=== PATIENT | male | born 2000 | race Caucasian/White ===

== ENCOUNTER 2020-11-10 19:49 | Emergency (ER) | payer OTHER, MEDICAID, SELFPAY ==
--- NOTE | ~2020-11-10 | XR_ITS ---
EXAMINATION: XR TOES, LEFT CLINICAL INFORMATION: Left great toe injury. Pain and swelling. COMPARISON: None TECHNIQUE: 3 views of the left toes were obtained. FINDINGS: Mildly displaced, oblique fracture through the 1st proximal phalanx which extends from the dorsal aspect of the 1st metatarsophalangeal articular surface to the central aspect of the 1st interphalangeal articular surface. No dislocation. Circumferential soft tissue swelling. No joint space narrowing or marginal osteophytes. No osseous erosion. XR/XR toe LT min 2V IMPRESSION: Mildly displaced, oblique fracture of the 1st proximal phalanx contacting both the 1st metatarsophalangeal and 1st interphalangeal joint surfaces.
[2020-11-10 20:55] VITALS: BP 140/87; PULSE 91; RESP 14; TEMP 36.7; O2SAT 98; BMI 26.8
--- NOTE | 2020-11-10 21:50 | ED.LOWEXIN ---
HPI - Extremity Injury (Lower) General Chief Complaint: Extremity Injury, Lower Stated Complaint: toe inj Time Seen by Provider: 11/10/20 21:50 Source: patient Mode of arrival: ambulatory History of Present Illness HPI Narrative: This is a 20-year-old male who presents after jumping off of a loading dock onto his feet with pain and swelling ensuing in his left great toe. Related Data Allergies Allergy/AdvReac Type Severity Reaction Status Date / Time No Known Allergies Allergy Verified 11/10/20 21:01 [No Known Allergies*] Review of Systems Review of Systems: Pertinent positives and negatives as stated in HPI 10 point review of systems is otherwise negative. PMFSH Past Medical History Source: nursing notes reviewed Medical History Asthma Social History Social History Advance Directives: No Advance Directives Information Provided: Yes Physical Exam Vital Signs: Vital Signs: Last Vital Signs Temp 98.0 F 11/10/20 20:55 Pulse 91 11/10/20 20:55 Resp 14 11/10/20 20:55 BP 140/87 H 11/10/20 20:55 Pulse Ox 98 11/10/20 20:55 Body Mass Index 26.8 VITAL SIGNS: Reviewed. GENERAL: Well developed, well nourished, in no acute distress. HEAD: Normocephalic/atraumatic EYES: PERRLA, EOMI NOSE: Nares patent bilateral OROPHARYNX: no oral lesions noted, posterior pharynx clear LUNGS: Normal breath sounds. No adventitious sounds or accessory muscle use. SpO2<98> CARDIOVASCULAR: Regular rate and rhythm without noted murmurs ABDOMEN: Soft, non-tender, non-distended with bowel sounds. LEFT GREAT TOE: Ecchymosis, mild deformity, capillary refill less than 3 seconds NEUROLOGIC: Alert and oriented x 4. Course Course Course Narrative: This is a 20-year-old male with history and clinical presentation consistent with fracture versus dislocation of left great toe. On review of imaging there is a mildly displaced oblique fracture of the 1st proximal phalanx. This case was discussed briefly with orthopedic services who agrees with the plan to discharge and postop shoe with follow-up in the morning in the office. All results and findings cuts with the patient as mother at bedside. Discharge Plan Discharge Clinical Impression: Closed fracture of left great toe Patient Disposition: Home, Self-Care Instructions: Toe Fracture (ED), Post Surgical Shoe (ED) Additional Instructions: 1. Tylenol 1000 mg, orally, every 6 hours as needed for pain control. Do not exceed 4000 mg within 24 hours. 2. Ibuprofen 400 mg, orally with milk or food, every 6 hours as needed for pain control. 3. Follow-up with the orthopedic office in the morning, the referral was provided to you below. 4. You will need to keep your foot elevated when possible to remove some of the pressure for additional pain relief. In addition, apply ice to unexposed skin. Return to the ER for any acute worsening of your symptoms. Referrals: Kasey Dsouza NP [Primary Care Provider] - 2 days Vita Ray MD [Physician] - 2 days (Evaluate and treat as indicated for mildly displaced, oblique fracture of the 1st proximal phalanx)
== END 2020-11-10 22:31 | disposition home or self-care (01) ==
PROVIDERS: Emergency Provider Student in an Organized Health Care Education/Training Program; PCP Nurse Practitioner Primary Care
DX: S92.412A Displaced fracture of proximal phalanx of left great toe, initial encounter for closed fracture (principal); W17.89XA Other fall from one level to another, initial encounter; Y93.89 Activity, other specified; Y92.219 Unspecified school as the place of occurrence of the external cause; Y99.0 Civilian activity done for income or pay
CPT/HCPCS: 73660; 99284

== ENCOUNTER → 2020-11-17 08:47 | Outpatient (BNVA) | payer OTHER, MEDICAID, SELFPAY | PROVIDERS: PCP Nurse Practitioner Primary Care; Visit Provider Physician Assistant | DX: S92.402A Displaced unspecified fracture of left great toe, initial encounter for closed fracture (principal) | CPT/HCPCS: 99202 ==

== ENCOUNTER 2021-01-31 07:11 | Emergency (ER) | payer OTHER, MEDICAID, SELFPAY ==
[2021-01-31 07:12] VITALS: BP 135/91; PULSE 76; RESP 18; TEMP 36.6; O2SAT 100; BMI 26.4
--- NOTE | 2021-01-31 07:58 | ED_ITS ---
HPI - General Adult General Chief complaint: General Medical Stated complaint: anxiety and Panic attack Time Seen by Provider: 01/31/21 07:58 Source: patient and family (Mother) Mode of arrival: ambulatory Limitations: no limitations History of Present Illness HPI narrative: 20-year-old male history of anxiety usually controlled with Effexor, is in his medication about 2 months now, patient seen last night in very anxious with severe insomnia. Patient declined any SI or HI or auditory hallucination. Related Data Home Medications Medication Instructions Recorded Confirmed albuterol sulfate 90 mcg/actuation 0 mcg INHALATION 11/17/20 aerosol inhaler atomoxetine 10 mg capsule 10 mg PO DAILY 11/17/20 atomoxetine 25 mg capsule 25 mg PO QAM 11/17/20 cholecalciferol (vitamin D3) 50 50 mcg PO DAILY 11/17/20 mcg (2,000 unit) capsule fluticasone propionate 110 1 puff INHALATION BID 11/17/20 mcg/actuation HFA aerosol inhaler hydroxyzine HCl 10 mg tablet 10 mg PO TID 11/17/20 naloxone 4 mg/actuation nasal spray 1 spray INTRANASAL ONCE PRN 11/17/20 sertraline 50 mg tablet 50 mg PO DAILY 11/17/20 venlafaxine 37.5 mg 37.5 mg PO DAILY 11/17/20 capsule,extended release 24 hr venlafaxine 75 mg capsule,extended 75 mg PO DAILY 11/17/20 release 24 hr Previous Rx's Medication Instructions Recorded venlafaxine 37.5 mg 37.5 mg PO DAILY #7 cap 01/31/21 capsule,extended release 24 hr (Effexor XR) Allergies Allergy/AdvReac Type Severity Reaction Status Date / Time No Known Allergies Allergy Verified 11/17/20 09:10 [No Known Allergies*] Review of Systems Review of Systems: All other systems are reviewed and are negative Constitutional: Reports as per HPI and Reports no additional constitutional complaints Eyes: Reports as per HPI and Reports no additional eye complaints Reports system reviewed and no additional complaints, except as documented Cardiovascular: Reports as per HPI and Reports no additional cardiovascular complaints Respiratory: Reports as per HPI and Reports no additional respiratory complaints Gastrointestinal: Reports as per HPI and Reports no additional gastrointestinal complaints Genitourinary: Reports no additional female genitourinary complaints Musculoskeletal: Reports no additional musculoskeletal complaints Skin/Breast: Reports system reviewed and no additional complaints, except as docu Psychiatric: Reports no additional psychiatric complaints Endocrine: Reports no additional endocrine complaints Hematologic/Lymphatic: Reports no additional hematologic/lymphatic complaints Allergic/Immunologic: Reports no additional allergic/immunologic complaints Reports system reviewed and no additional complaints, except as documented and Reports Abnormal speech present [facility] Past Medical History Medical History (Updated 01/31/21 @ 08:05 by Lucio Salvador MD) Anxiety Asthma Depression Social History Social History Advance Directives: No Advance Directives Information Provided: Yes Current occupational status: employed Physical Exam Vital Signs: Vital Signs: Last Vital Signs Temp 98 F 01/31/21 07:12 Pulse 76 01/31/21 07:12 Resp 18 01/31/21 07:12 BP 135/91 H 01/31/21 07:12 Pulse Ox 100 01/31/21 07:12 Body Mass Index 26.4 Vital signs have been reviewed as appeared to be correct. Blood pressure normal. Heart rate normal. Respiration rate normal. Temperature normal. Oxygen saturation normal. Appearance: Alert. Oriented X3. No acute distress. Head: Normal external exam. Normocephalic. Atraumatic. No Pretty signs noted. No raccoon eyes noted Eyes: PERRLA. EOMI. Conjunctiva and sclera normal. Eyelids normal. ENT: TM's Normal. Pharynx normal. Uvula midline. Moist mucous membranes. No trismus noted. No drooling noted. No muffled voice noted. Neck: Normal inspection. Neck supple. FROM. No adenopathy. Thyroid Normal. No meningeal signs. No neck mass noted. CVS: Normal heart rate and rhythm. Heart sound normal. No murmurs noted. Pulses normal throughout. Respiratory: No respiratory distress. Painless inspiration. Breath sounds normal. No wheezes/rales/rhonchi noted. Chest nontender. No accessory muscle usage noted or decreased air movement noted. Abdomen: Soft and nontender. Bowel sounds normal in all 4 quadrants. No distention noted. No organomegaly noted. No visible injury noted. Back: No CVA tenderness. Full range of motion noted. Skin: Skin warm and dry. Normal skin color. Normal skin turgor. No rashes/lesions/lacerations noted. Extremities: No lower extremity edema. Extremities exhibit normal range of motion. Extremities nontender. Neuro: Oriented X 3. Cranial nerve exam: II-XII are grossly intact No motor deficit. No sensory deficit. Reflexes normal. Course Course Course Narrative: 20-year-old male with history of anxiety and insomnia patient was taking Effexor to control his symptoms has not been using medication for 2 months, because of the acute flare of his symptoms patient presented today asking to send the medicine to [facility] pharmacy Discharge Plan Discharge Clinical Impression: Anxiety Insomnia Qualifiers: Insomnia type: unspecified Qualified Code(s): G47.00 - Insomnia, unspecified Patient Disposition: Home, Self-Care Instructions: Insomnia (ED) Additional Instructions: Follow-up with your primary doctor in 2-3 days. Prescriptions: New venlafaxine [Effexor XR] 37.5 mg capsule,extended release 24hr 37.5 mg PO DAILY Qty: 7 RF: 0 No Action venlafaxine 75 mg capsule,extended release 24hr 75 mg PO DAILY RF: 0 atomoxetine 25 mg capsule 25 mg PO QAM RF: 0 hydroxyzine HCl 10 mg tablet 10 mg PO TID RF: 0 cholecalciferol (vitamin D3) 50 mcg (2,000 unit) capsule 50 mcg PO DAILY RF: 0 atomoxetine 10 mg capsule 10 mg PO DAILY RF: 0 venlafaxine 37.5 mg capsule,extended release 24hr 37.5 mg PO DAILY RF: 0 Narcan 4 mg/actuation spray,non-aerosol 1 spray intranasal ONCE PRNRF: 0 Flovent HFA 110 mcg/actuation HFA aerosol inhaler 1 puff inhalation BID RF: 0 albuterol sulfate 90 mcg/actuation HFA aerosol inhaler 0 mcg inhalation RF: 0 sertraline 50 mg tablet 50 mg PO DAILY RF: 0
== END 2021-01-31 08:34 | disposition home or self-care (01) ==
PROVIDERS: Emergency Provider Emergency Medicine; PCP Nurse Practitioner Primary Care
DX: F41.0 Panic disorder [episodic paroxysmal anxiety] (principal); G47.00 Insomnia, unspecified; F41.1 Generalized anxiety disorder; F43.0 Acute stress reaction; Z79.899 Other long term (current) drug therapy
CPT/HCPCS: 99283; 99284

== ENCOUNTER 2023-05-06 14:40 | Emergency (ER) | payer OTHER, MEDICAID, SELFPAY ==
--- NOTE | ~2023-05-06 | CT_ITS ---
EXAMINATION: CT CERVICAL SPINE WITHOUT CONTRAST; UNENHANCED CT OF THE HEAD. CLINICAL INFORMATION: Fall. Neck trauma. COMPARISON: None TECHNIQUE: Routine unenhanced CT of the head with multiple coronal and sagittal reformatted images; routine unenhanced CT of the cervical spine with multiple coronal and sagittal reformatted images. This CT examination was performed using dose optimization techniques as appropriate, variously including the following: *Automated exposure control *Adjustment of mA and/or kV according to patient size (this includes techniques or standardized protocols for targeted exams where dose is matched to indication/reason for exam; i.e. extremities or head) *Use of iterative reconstruction technique DLP: 1314 mGy-cm FINDINGS: No intracranial hemorrhage, tumors or acute infarcts noted. The orbits and globes are normal in appearance. Mild right periorbital soft tissue inflammatory changes are noted. The right globe and orbit are normal in appearance. Mild lobulated mucosal thickening is noted within the frontal sinuses and right maxillary sinus. No paranasal sinus gas-fluid levels noted. No mastoid or middle ear cavity effusions visualized. CT cervical spine: No fractures or acute appearing subluxations identified. The visualized lung apices are clear. No prevertebral fluid collections or soft tissue inflammatory changes identified. Grossly normal appearance of the thyroid. CT/CT head/brain wo IV con IMPRESSION: CT head: 1. No acute intracranial abnormalities. 2. Right periorbital soft tissue inflammatory changes. No maxillofacial fractures identified. The cervical spine: 1. No acute abnormalities. No fractures or acute subluxations identified.
--- NOTE | ~2023-05-06 | CT_ITS ---
EXAMINATION: CT CERVICAL SPINE WITHOUT CONTRAST; UNENHANCED CT OF THE HEAD. CLINICAL INFORMATION: Fall. Neck trauma. COMPARISON: None TECHNIQUE: Routine unenhanced CT of the head with multiple coronal and sagittal reformatted images; routine unenhanced CT of the cervical spine with multiple coronal and sagittal reformatted images. This CT examination was performed using dose optimization techniques as appropriate, variously including the following: *Automated exposure control *Adjustment of mA and/or kV according to patient size (this includes techniques or standardized protocols for targeted exams where dose is matched to indication/reason for exam; i.e. extremities or head) *Use of iterative reconstruction technique DLP: 1314 mGy-cm FINDINGS: No intracranial hemorrhage, tumors or acute infarcts noted. The orbits and globes are normal in appearance. Mild right periorbital soft tissue inflammatory changes are noted. The right globe and orbit are normal in appearance. Mild lobulated mucosal thickening is noted within the frontal sinuses and right maxillary sinus. No paranasal sinus gas-fluid levels noted. No mastoid or middle ear cavity effusions visualized. CT cervical spine: No fractures or acute appearing subluxations identified. The visualized lung apices are clear. No prevertebral fluid collections or soft tissue inflammatory changes identified. Grossly normal appearance of the thyroid. CT/CT cervical spine wo IV con IMPRESSION: CT head: 1. No acute intracranial abnormalities. 2. Right periorbital soft tissue inflammatory changes. No maxillofacial fractures identified. The cervical spine: 1. No acute abnormalities. No fractures or acute subluxations identified.
[2023-05-06 14:50] VITALS: BP 102/69; BP 144/82; PULSE 100; PULSE 102; RESP 22; O2SAT 98; BMI 25.7
--- NOTE | 2023-05-06 14:50 | ECG_ITS ---
Test Reason : SEIZURES Blood Pressure : / mmHG Vent. Rate : 100 BPM Atrial Rate : 100 BPM P-R Int : 162 ms QRS Dur : 088 ms QT Int : 352 ms P-R-T Axes : 055 056 060 degrees QTc Int : 454 ms Normal sinus rhythm Normal ECG No previous ECGs available Referred By: Zohreh Kay Electronically Signed By:LEON MOCTEZUMA MD
--- NOTE | 2023-05-06 14:58 | PC.NURSE ---
Patient arrived from residential after having a 3 minute tonic clonic seizure that per staff last 3 minutes. During seizure patient fell hitting right side of head and sustaining a laceration. Patient denies pain states was feeling anxious and that was the last thing he remembers. Calm and cooperative, vss
[2023-05-06] MEDS: LORazepam 1 MG TABLET 2 MG PO (15:02)
--- NOTE | 2023-05-06 15:06 | PC.NURSE ---
Mom updated on current condition
--- NOTE | 2023-05-06 15:11 | ED.SEIZURE ---
HPI - Seizure General Chief Complaint: Seizure Stated Complaint: SZ,POST ICTAL PER EMS Time Seen by Provider: 05/06/23 14:41 Source: patient and EMS Mode of arrival: EMS Limitations: no limitations History of Present Illness HPI Narrative: witnessed by roommate anxious then fell to ground hit head 3 min GTC with postictal state he is anxious here agrees to EKG and CT head but refuses labs, his parents on on the phone and aware. MD complaint: seizure and possible seizure Onset (ago): minute(s) (just prior to arrival ) Description of Episode: loss of consciousness and tonic-clonic movement Duration of episode: 3 -: minutes(s) Witnessed: Yes - by Bystander Trauma: Yes Seizure History: No Place: Home Possible Precipitating Event: none Associated symptoms: denies other symptoms Treatments prior to arrival: none Related Data Home Medications Medication Instructions Recorded Confirmed albuterol sulfate 90 mcg/actuation 0 mcg inhalation 11/17/20 aerosol inhaler atomoxetine 10 mg capsule 10 mg PO DAILY 11/17/20 atomoxetine 25 mg capsule 25 mg PO QAM 11/17/20 cholecalciferol (vitamin D3) 50 50 mcg PO DAILY 11/17/20 mcg (2,000 unit) capsule fluticasone propionate 110 1 puff inhalation BID 11/17/20 mcg/actuation HFA aerosol inhaler hydroxyzine HCl 10 mg tablet 10 mg PO TID 11/17/20 naloxone 4 mg/actuation nasal spray 1 spray intranasal ONCE PRN 11/17/20 sertraline 50 mg tablet 50 mg PO DAILY 11/17/20 venlafaxine 37.5 mg 37.5 mg PO DAILY 11/17/20 capsule,extended release 24 hr venlafaxine 75 mg capsule,extended 75 mg PO DAILY 11/17/20 release 24 hr Previous Rx's Medication Instructions Recorded venlafaxine 37.5 mg 37.5 mg PO DAILY #7 caps 01/31/21 capsule,extended release 24 hr (Effexor XR) Allergies Allergy/AdvReac Type Severity Reaction Status Date / Time No Known Allergies Allergy Verified 11/17/20 09:10 [No Known Allergies*] Review of Systems Review of Systems: Constitutional : No Fever, No Chills, No Fatigue ENT/Mouth : No sore throat, No Rhinorrhea Eyes: No Eye Pain, No Swelling, No Redness Cardiovascular : No Chest Pain, No SOB, No Dyspnea on Exertion Respiratory : No Cough, No Sputum Gastrointestinal : No Nausea, No Vomiting, No Diarrhea, No abdominal Pain Genitourinary : No Dysuria, No Urinary Frequency, No Hematuria, Musculoskeletal : No joint pain, No Myalgias, No Joint Swelling Skin : No Skin Lesions, No rash Neuro : No Weakness, No Numbness, No Dizziness, no Headache Psych : No Anxiety/Panic, No Depression Heme/Lymph: No Bruising, No Bleeding,No Lymphadenopathy Endocrine : No Polyuria, No Polydipsia All other systems reviewed and are negative [facility] Past Medical History Medical History (Updated 05/06/23 @ 16:41 by Zohreh Kay DO) Depression Anxiety Asthma Social History Social History Alcohol intake: current Alcohol intake frequency: holidays/special occasions only Patient Tobacco Use Status: Never used Tobacco Substance Use Type: Marijuana Advance Directives: No Advance Directives Information Provided: No Current occupational status: employed Physical Exam Vital Signs: Vital Signs: Last Vital Signs Pulse 102 H 05/06/23 14:50 Resp 22 H 05/06/23 14:50 BP 102/69 05/06/23 14:50 Pulse Ox 98 05/06/23 14:50 O2 Del Method Room Air 05/06/23 14:50 BMI result Body Mass Index 25.7 Appearance: Alert. Oriented X3. No acute distress. Eyes: Pupils equal, round and reactive to light. ENT: Pharynx normal. contusion and 1cm laceration R eyebrow, abrasion R cheek Neck: Normal inspection. Neck supple. CVS: Normal heart rate and rhythm. Pulses normal. Respiratory: No respiratory distress. Breath sounds normal. Abdomen: Soft and nontender. Skin: Skin warm and dry. Normal skin color. Normal skin turgor. Extremities: No lower extremity edema. No calf ttp Neuro: Oriented X 3. No motor deficit. No sensory deficit. Course Course Course Narrative: back to baseline POC > 90, did just start lamotrigine GCS 15 refusing all other workup - at baseline GCS 15 no longer postictal states he wants to leave I cannot keep him here against his will he is on the phone with parents in [facility] who state they cannot come either Medications Administered Discontinued Medications Generic Name Dose Route Start Last Admin Trade Name Freq PRN Reason Stop Dose Admin Lorazepam 2 mg 05/06/23 14:50 05/06/23 15:02 Lorazepam 1 Mg Tablet PO 05/06/23 14:51 2 mg ONCE ONE Administration Medical Decision Making Medical Decision Making [facility] Narrative: 23 yo male with hx of mental health issues, anxiety with syncope currently in [facility] on suboxone, no prior seizures who was with a roommate who saw him anxious and then passed out - staff report GTC seizure x 3 minutes with head strike. He is refusing all labs but will allow EKG, CT head and I am going to give PO ativan for anxiety. Differential Diagnosis Differential Diagnoses: The differential diagnosis associated with the presentation includes seizure, head injury, laceration Admission/Observation Consideration of admission/observation: Escalation of care including admission/observation considered refusing further care and wants to leave GCS 15 Lab Data [facility] Lab Attestation statement: I reviewed the patient's lab results. Labs: Lab Results 05/06/23 Range/Units 16:50 POC Glucose 96 (60-115) mg/dL Independent Interpretation I performed an independent interpretation of an: EKG and CT Scan (no ICH) Interpretation: Rate: 100 Rhythm: NSR [place]: normal Normal P waves. Normal NAYE. Normal QRS complex. ST T wave : no FAIZAN, no acute ischemia qTC: normal prior studies: no acute ischemia The study has been interpreted contemporaneously by me. . Independent Historian Clinical information obtained from an independent historian. History obtained from or confirmed by: Parent and EMS External Record Review External record reviewed: Outpatient record Procedures Laceration Laceration 1: Site: face Side (If applicable): right Size (cm): 1 Description: linear Depth: simple, single layer Pre-repair: wound explored and irrigated extensively Skin layer closed with: other (dermabond) Discharge Plan Discharge Clinical Impression: Generalized seizure Face lacerations Qualifiers: Encounter type: initial encounter Qualified Code(s): S01.81XA - Laceration without foreign body of other part of head, initial encounter Head injury Qualifiers: Encounter type: initial encounter Qualified Code(s): S09.90XA - Unspecified injury of head, initial encounter Patient Disposition: Home, Self-Care Instructions: Laceration (ED), Head Injury (ED), New-Onset Seizure in Adults (ED) Additional Instructions: you refused all labs in the ED. your CT head and EKG were normal. please stay with responsible adult. avoid swimming alone, cooking over open flame, operating a car or machinery for 6 months or until cleared by your doctor. please follow up with your primary care doctor. we do not start seizure medications for 1st time seizure generally. surgical glue will fall off in 5 to 7 days. continue lamotrigine please follow up with a neurologist, if this occurs again would start a seizure medication though you did just start lamictal every 30 min safety checks tonight Prescriptions: No Action venlafaxine [Effexor XR] 37.5 mg capsule,extended release 24hr 37.5 mg PO DAILY Qty: 7 0RF venlafaxine 75 mg capsule,extended release 24hr 75 mg PO DAILY atomoxetine 25 mg capsule 25 mg PO QAM hydroxyzine HCl 10 mg tablet 10 mg PO TID cholecalciferol (vitamin D3) 50 mcg (2,000 unit) capsule 50 mcg PO DAILY atomoxetine 10 mg capsule 10 mg PO DAILY venlafaxine 37.5 mg capsule,extended release 24hr 37.5 mg PO DAILY Narcan 4 mg/actuation spray,non-aerosol 1 spray intranasal ONCE PRN Flovent HFA 110 mcg/actuation HFA aerosol inhaler 1 puff inhalation BID albuterol sulfate 90 mcg/actuation HFA aerosol inhaler 0 mcg inhalation sertraline 50 mg tablet 50 mg PO DAILY Referrals: Chas Calle MD [Physician] - (call to schedule appointment)
--- NOTE | 2023-05-06 15:16 | PC.NURSE ---
[facility] staff called and updated on patients condition. Renata can be called with questions at [phone]. hr director must be called prior to discharge back to long-term at [phone] (Dimple)
--- NOTE | 2023-05-06 16:51 | PC.NURSE ---
BS 96
[2023-05-06 16:58] LABS: Glucose, Whole Blood 96 mg/dL (60-115)
--- NOTE | 2023-05-06 17:11 | PC.NURSE ---
Discharge plan reviewed with patient and [facility] who verbalized understanding. [facility] to book uber to pick patient up
--- NOTE | 2023-05-06 17:21 | PC.NURSE ---
Patient provided with [facility] from [facility] number to call for uber vehicle information. Patient brought to waiting room to wait for uber
== END 2023-05-06 17:22 | disposition home or self-care (01) ==
PROVIDERS: Emergency Provider Student in an Organized Health Care Education/Training Program; PCP Nurse Practitioner Primary Care
DX: G40.409 Other generalized epilepsy and epileptic syndromes, not intractable, without status epilepticus (principal); S01.81XA Laceration without foreign body of other part of head, initial encounter; S09.90XA Unspecified injury of head, initial encounter; W19.XXXA Unspecified fall, initial encounter; F41.9 Anxiety disorder, unspecified; Y93.89 Activity, other specified; Y92.9 Unspecified place or not applicable; Y99.9 Unspecified external cause status
CPT/HCPCS: 12011; 70450; 72125; 82947; 93005; 99284

== ENCOUNTER 2025-05-02 15:21 | Outpatient (AMB) | payer OTHER, MEDICAID, SELFPAY ==
--- NOTE | 2025-05-02 15:23 | A.OFFVIS_ITS ---
Vital Signs 05/02/25 15:31 Height 6 ft Weight 215 lb BMI 29.2 BP 138/74 Blood Pressure Location Rt brachial Position Sitting Respiration 16 Pulse 85 Pulse Source Pulse Oximeter Pulse Oximetry (%) 98 Oxygen Delivery Method Room Air Intake Visit Reasons: follow up after [facility] Coordinator Required: No Allergies No Known Allergies (No Known Allergies*) Allergy (Verified 05/02/25 15:31) HPI Comments Details: Carmine is a 25-year-old male patient here today for a post emergency room visit at which time he experienced a tonic-clonic event. He was followed here in the past by Dr. Brooks most recently seen in March of 2023 at which time he was doing well on lamotrigine. Carmine tells me today that after seeing Dr. Brooks he did taper off of the lamotrigine for unclear reasons and perhaps due to some poor lifestyle choices such as substance use and other social factors. He has been seeing someone for his mental health who ended up putting him on a medication that was thought to be supportive of both his moods and seizure. For some time he was doing okay on this but then stopped these medications as well. He has been off medication for at least several months and was in a. If life where he was feeling extremely stressed. It was this February he had another tonic-clonic event while at work. He was off of antiepileptics at that time. After his tonic-clonic event in February he went back on lamotrigine 200 mg twice daily. Since being back on lamotrigine, he has not had any further tonic-clonic events but has continued to have some minor myoclonic jerks similar to his previous. He has these most often in the morning upon wakening and he experiences on average 1 or 2 myoclonic jerks per week. He does admit to higher amount of missed doses of medication most typically his nighttime dose of lamotrigine. He is still drinking alcohol regularly (estimates 3-4 beers per night) and notes that this has impacted his sleep negatively though is still working on trying to stop his regular alcohol use. He has not never drink heavier and this on a regular basis. 06/01/23 EEG- Abnormal with several generalized polyspike and spike wave discharges during the record without clinical Sx. consistent with a generalized seizure disorder. ON LICENSE OF [facility] Medical History (Updated 05/02/25 @ 16:09 by Regla Clifford CNP) Depression Anxiety Asthma Social History Alcohol intake: current Alcohol intake frequency: holidays/special occasions only Patient Tobacco Use Status: Never used Tobacco Substance Use Type: Marijuana Current occupational status: employed Review of Systems Const All systems reviewed & are unremarkable except as noted in HPI and below Physical Exam Const General: cooperative, healthy appearing, comfortable and no acute distress Nutritional Appearance: well nourished Orientation/consciousness: patient oriented x3 Limitations: no limitations HEENT Head: Yes normal to inspection and Yes normocephalic Eyes General: appearance normal, both eyes and all related structures Visual Lange: normal visual lange by confrontation Alignment and Position: alignment normal Periorbital: periorbital findings normal Eyelids: Yes eyelids normal Conjunctivae: conjunctivae normal Sclerae: sclerae normal Neuro General: patient oriented x3 Cranial nerves: Yes CN's II-XII intact bilaterally Cognition (Neuro): normal cognition Gait exam (Neuro): Normal gait present Motor exam (neuro): no tremor noted Sensory Exam: double simultaneous stimulation for sensation normal Romberg Test: Negative Pupils: Normal pupillary reactivity/response: bilateral Psych Appearance: grossly normal Mental Status: mental status grossly normal Speech and movement: Normal speech and movement present and Clear speech present Affect: normal affect Attitude: cooperative Thought process: Normal thought process present Thought content: Normal thought content present Insight: Good insight present (Psych) Judgement: Good judgement present (Psych) Assessment & Plan Assessment & Plan (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 He is currently struggling with some social and environmental issues that have complicated his seizure disorder. He has been doing well on lamotrigine in the past though had come off of it for unclear reasons. He had went back on another agent that he can not recall that he feels was prescribed both for his seizures and mood stabilization. He came off of those medications as well and back in February while off of any antiepileptic medication was under a significant amount of stress and had a tonic-clonic event while at work. Since this time he is back on lamotrigine 200 mg twice daily and has had improvement in his symptoms though still has 1 or 2 myoclonic jerks in the morning per week. This may be related to some missed doses of medication though it is not clear. I would 1st like to help improve his compliance and therefore we will switch his lamotrigine to extended release. He in the meantime would like to work on his alcohol intake and in the future, if his sleep does not improve after discontinuation of alcohol we can consider a sleep study. -change lamotrigine 200 mg twice daily to lamotrigine 400 mg extended release daily in efforts to improve his compliance/coverage -patient agrees to work on slow tapering of alcohol with collaboration by his primary care provider -could consider sleep study in the future if sleep continues to be poor even after discontinuation of alcohol -follow-up in 6 weeks or sooner if needed -he is currently aware that he cannot drive 6 months after most recent seizure event Medications: New lamotrigine ER 400 mg (2 x 200 mg) PO DAILY 60 tabs 5RF 30 days Discontinued lamotrigine Discontinued Reason: Doctor's Order 200 mg PO BID 30 days 60 tabs 5RF Coding Level of Care Code Est Pt Level 4 (16895) Diagnoses Juvenile myoclonic epilepsy G40.B09
[2025-05-02 15:31] VITALS: BP 138/74; PULSE 85; RESP 16; O2SAT 98; BMI 29.2
--- OUTSIDE RECORDS SUMMARY | 2025-05-03 00:10 | XMS_ITS | Clinical Summary ---
Author Organization [employer] Address [address] [place] [address] Care Team Providers Care Card Lacer Name Role Phone Kasey Dsouza MAAME Primary Care Provider [phone] Allergies Active Allergy Reactions Criticality Noted Date Comments Valproic Acid 09/16/2022 Other reaction(s): Feeling suicidal Medications * This document contains information received from the source organization and may not represent a complete record from that organization. ibuprofen 400 MG tabletIndications :Acute back pain, unspecified back location, unspecified back pain laterality Take 1 tablet (400 mg) by mouth every 6 (six) hours if needed for moderate pain or fever for up to 30 doses. 30 tablet 2 Active albuterol 108 (90 Base) MCG/ACT inhaler Inhale 2 puffs every 4 (four) hours if needed for wheezing or shortness of breath. 18 g 1 3 Active hydrOXYzine HCl (Atarax) 50 MG tablet 3 Active lamoTRIgine (LaMICtal) 200 MG tablet Take 1 tablet by mouth 2 times daily. 4 Active Blood Pressure kitIndications:El evated blood pressure reading without diagnosis of hypertension 1 each 2 times daily. 1 kit 5 03/26/20 26 Active thiamine (Vitamin B-1) 100 MG tabletIndications :Alcohol use disorder, moderate, dependence (CMS/HCC) (HCC) Take 1 tablet (100 mg) by mouth Once per day. 90 tablet 3 03/26/2025 7:21 PM EDT 5 03/26/20 26 Active Folic Acid-Vit B6-Vit B12 0.5-5-0.2 MG tabletIndications :Alcohol use disorder, moderate, dependence (CMS/HCC) (HCC) Take 1 tablet by mouth Once per day. 90 tablet 3 5 Active Active Problems Problem Noted Date Diagnosed Date Alcohol use disorder, moderate, dependence (CMS/ HCC) 03/26/2025 Seizure (CMS/HCC) 05/10/2023 Assessment & Plan (05/10/2023 8:28 PM EST): Episode of seizure -first event on 05/06/2023 . Denies infectious nor drug use,denies head trauma prior event. Did hit his head after episode causing right eye trauma w bruise and eye hemorrhage reported as improving ,denies alarming neuro symptoms. -CT cervical spine and head w/o contrast 05/06/2023 mild right perioorbital soft tissue inflammatory changes are noted otherwise no acute brain or neck findings -brain MRI w/o contrast referred today -referred to neurologist will need EEG -blood labs including utox-pt agreed for testing -advised for to use ice in his eye to help w swelling -alarm signs and symptoms discussed w pt -f w PCP in 4 weeks to monitor image,labs ,consult Right shoulder pain 05/10/2023 Assessment & Plan (05/10/2023 8:30 PM EST): Acute on chronic right shoudler pain worsen after fall Exam not concerning for fx nor dislocation -PT referral for shoulder today ,if no improvement would need image of shoulder -tylenol prn -f w PCP in 4 weeks Health care maintenance 05/10/2023 Assessment & Plan (05/10/2023 8:30 PM EST): -refuse flu vaccine offered today Generalized anxiety disorder 09/16/2022 Severe episode of recurrent major depressive disorder, without psychotic features (CMS/HCC) 09/16/2022 Assessment & Plan (07/19/2024 9:30 AM EST): During [facility] Consult Carmine presenting with depressed mood, Tearful, crying spells , hopelessness, irritable mood, loss of interests/pleasure , sense of isolation/loneliness , isolating, change in appetite or weight reduce appetite, changes in sleep difficulty falling asleep, fatigue/loss of energy, worthlessness, inappropriate/excessive guilt , difficulty concentrating, indecisiveness and Difficulty with attention, Difficulty completing tasks/jumping between tasks or activities, Difficulty with focus, Avoidance of tasks, Easily distracted, Forgetful, Difficulty being still, Restlessness/fidgeting, Talkative, Interrupts others, Executive functioning difficulty, and Difficulty with relationships; for a period of 18+ mo, for most or all symptoms in the context of family issues, housing, and long history of mental health conditions untreated for most part. Carmine carries a diagnosis for ADHD per his medical chart. He is currently connected with a psychiatrist at [facility]. Used to see a therapist at [facility] but agency recently closed. Carmine reported long history of mental health. He has been on medication since his early teens. Current stressors are identified as housing and family issues (complicated dynamics with his mother). clinician engaged patient with active/reflective listening. Reviewed and assessed for risk, current stressors and protective factors using open-ended questions. Pt will be referred for therapy services and continue treatment with [facility] for psychiatry services. clinician will see patient during next medical appointment to assess progress and provide additional support. Assessment & Plan (08/17/2023 11:27 AM EST): During [facility] Consult Carmine presenting with depressed mood, loss of interests/pleasure , changes in sleep difficulty falling asleep, change in appetite or weight overeating, psychomotor agitation, thoughts of worthlessness or guilt, fatigue/loss of energy, inappropriate guilt , hopelessness, difficulty concentrating, passive suicidal ideation w/o plan, excessive worry/anxiety, difficulty controlling worry, restless/keyed up/On edge, easily fatigued, difficulty concentrating/Mind going blank , irritability, and muscle tension, and Abnormally elevated mood, Decreased need for sleep, and Changes in self-image; for a period of 18+ mo, for all symptoms in the context of long history of mental health and substance use. Carmine reported long history of mental health. He has been on medication since his early teens. Last time he had services for individual therapy was about three years ago. He was recently discharged from a Methadone program with [facility] with no services in place. Depressive and anxiety sxs on and off and worsening in the last years. He's willing to seek out for help and start therapy. PLAN: (check all that apply) New/Additional Services needed PCP management Off-site services for . Referral for OP individual therapy will be place. clinician will see patient during next follow-up appointment with provider. Mild intermittent asthma without complication Overview (09/16/2022): Albuterol prn Mood disorder 09/04/2017 Assessment & Plan (08/17/2023 11:27 AM EST): During [facility] Consult Carmine presenting with depressed mood, loss of interests/pleasure , changes in sleep difficulty falling asleep, change in appetite or weight overeating, psychomotor agitation, thoughts of worthlessness or guilt, fatigue/loss of energy, inappropriate guilt , hopelessness, difficulty concentrating, passive suicidal ideation w/o plan, excessive worry/anxiety, difficulty controlling worry, restless/keyed up/On edge, easily fatigued, difficulty concentrating/Mind going blank , irritability, and muscle tension, and Abnormally elevated mood, Decreased need for sleep, and Changes in self-image; for a period of 18+ mo, for all symptoms in the context of long history of mental health and substance use. Carmine reported long history of mental health. He has been on medication since his early teens. Last time he had services for individual therapy was about three years ago. He was recently discharged from a Methadone program with [facility] with no services in place. Depressive and anxiety sxs on and off and worsening in the last years. He's willing to seek out for help and start therapy. PLAN: (check all that apply) New/Additional Services needed PCP management Off-site services for . Referral for OP individual therapy will be place. clinician will see patient during next follow-up appointment with provider. ADHD (attention deficit hype ractivity disorder), combined type 08/04/2015 Overview (09/16/2022): Followed by Gia Coleman Asperger syndrome 08/04/2015 05/10/2023 Anxiety 05/12/2010 Assessment & Plan (08/17/2023 11:27 AM EST): During [facility] Consult Carmine presenting with depressed mood, loss of interests/pleasure , changes in sleep difficulty falling asleep, change in appetite or weight overeating, psychomotor agitation, thoughts of worthlessness or guilt, fatigue/loss of energy, inappropriate guilt , hopelessness, difficulty concentrating, passive suicidal ideation w/o plan, excessive worry/anxiety, difficulty controlling worry, restless/keyed up/On edge, easily fatigued, difficulty concentrating/Mind going blank , irritability, and muscle tension, and Abnormally elevated mood, Decreased need for sleep, and Changes in self-image; for a period of 18+ mo, for all symptoms in the context of long history of mental health and substance use. Carmine reported long history of mental health. He has been on medication since his early teens. Last time he had services for individual therapy was about three years ago. He was recently discharged from a Methadone program with [facility] with no services in place. Depressive and anxiety sxs on and off and worsening in the last years. He's willing to seek out for help and start therapy. PLAN: (check all that apply) New/Additional Services needed PCP management Off-site services for . Referral for OP individual therapy will be place. clinician will see patient during next follow-up appointment with provider. Encounters * This document contains information received from the source organization and may not represent a complete record from that organization. Date Type Department Care Team Description 03/27/2025 Telephone [facility] [address] [place] [address] Selene Grier MA 03/26/2025 3:00 PM EDT Office Visit [facility] [address] [place] [address] Kasey Dsouza ANP Seizures (CMS/HCC) ([facility]) (Primary Dx); Elevated blood pressure reading without diagnosis of hypertension; Hospital discharge follow-up; Anxiety; Severe episode of recurrent major depressive disorder, without psychotic features (CMS/HCC) ([facility]); Onychomycosis; Elevated blood sugar; Alcohol use disorder, moderate, dependence (CMS/HCC) ([facility]); Dietary counseling; Exercise counseling; Asperger syndrome; Mood disorder (CMS/HCC) 03/26/2025 Travel 03/25/2025 Telephone [facility] [address], [place] [id number] Kasey Dsouza ANP chart prep from Last 3 Months Immunizations Immunization Administration Dates Next Due DTaP, 5 pertussis antigens 02/13/2004,,2000,06/14,2000 HPV 9-Valent 02/06/2015 HPV, Quadrivalent 09/19/2014,07/22/2014 Hep A, ped/adol, 2 dose 08/04/2015,07/22/2014 Hep B, Adolescent or Pediatric 2000,1999,2000 Hib (PRP-T) 02/12/2001, 1,2000,04/12 IPV 02/13/2004, 2,2000,04/12 Influenza Injectable Quadriv alant Preservative Free IIV4 MDCK 05/27/2016 Influenza injectable quadriv alent IIV4 with preservative 04/19/2014 Influenza injectable quadriv alent preservative free 06/14/2022,07/17/2019,05/05/2018,09/04,02/06/2015,04/12/2013 Influenza, IIV3, injectable 03/10/2009,1 06/29/2007,04/27/2007,05/08,03/31/2004,06/06/2003,05/07/2003 Influenza, Split (incl. ruby fied surface antigen) 06/04/2012,05/11/2011,03/08/2010 MMR 02/13/2004,02/12/2001 Meningococcal MCV4P [id number] 09/06/2016,05/11/20 11 Novel [id number], all formulations 08/27/2009,05/08/2009 Pneumococcal Conjugate PCV 7 02/12/2001, 2000,2000,04/12 Tdap 05/11/2011 Varicella 04/29/2008,02/12/2001 Social History Tobacco Use Types Packs/Day Years Used Date Smoking Tobacco: Never Smokeless Tobacco: Never Tobacco Cessation:Counseling Given: Not Answered Alcohol Use Standard Drinks/Week Comments Not Currently 0 (1 standard drink = 0.6 oz pur e alcohol) Depression Answer Date Recorded Patient Health Questionnaire-9 Score 10 07/16/2024 Patient Health Questionnaire-9 Score 10 07/16/2024 Last PHQ-9: Questionnaire Data Not on file 0 07/16/2024 Housing Stability Answer Date Recorded What is your housing situation today? I have mango mar 03/26/[address] you li ve. Do you have problems with any of the following? None of the above 03/26/2025 Food Insecurity Answer Date Recorded Within the past 12 months, y ou worried that your food would run out before you got money to buy more: Never True 03/26/2025 Within the past 12 months,th e food you bought just didn't last and you didn't have enough money to get more: Never True 01/2025 Transportation Answer Date Recorded In the past 12 months, has l ack of transportation kept you from medical appts, meetings, work or from getting things needed for daily living? No 03/26/2025 Utilities Answer Date Recorded In the past 12 months, has t he electric, gas, oil or water company threatened to shut off services in your home? No 03/26/2025 Depression Answer Date Recorded Patient Health Questionnaire-2 Score 3 07/16/2024 Internet Access Answer Date Recorded Internet Access Q1 Yes 03/26/2025 Internet Access Q2 Not on file 03/26/2025 Sex and Gender Information Value Date Recorded Sex Assigned at Male 04/18/2022 10:36 AM EDT Legal Sex Male 10:36 AM EDT Gender Identity Male 04/18/2022 10:36 AM EDT Sexual Orientation Straight 04/18/2022 10 :36 AM EDT Last Filed Vital Signs Vital Sign Reading Time Taken Comments Blood Pressure 138/90 03/26/2025 3:08 PM EDT Pulse 73 03/26/2025 3:08 PM EDT Temperature 36.5 C (97.7 F) 03/26/2025 3:08 PM EDT Respiratory Rate 11 03/26/2025 3:08 PM EDT Oxygen Saturation 98% 03/26/2025 3:08 PM EDT Inhaled Oxygen Concentration - - Weight 94.8 kg (209 lb) 03/26/2025 3:08 PM EDT Height 182.9 cm (6') 03/26/2025 3:08 PM EDT Body Mass Index 28.35 03/26/2025 3:08 PM EDT Plan of Treatment Upcoming Encounters Date Type Department Care Team (Late st Contact Info) Description 05/21/2025 3:45 PM EST Office Visit [facility] [address] [place] [address] Kasey Dsouza, ANP [address] [place] [address] Health Maintenance Due Date Last Done Comments Family Planning (PISQ) 02/06/2015 Pneumococcal Vaccine: Pediatrics (0 to 5 Years) and At-Risk Patients (6 to 49) Years (1 of 2 - PCV) 02/06/2019 02/12/2001, 2000, 2000, Additional history exists DTaP/Tdap/Td Vaccines (7 - Td or Tdap) 05/11/2021 05/11/2011, 02/13/2004, 08/20/2001, Additional history exists Depression Monitoring 01/13/2025 07/16/2024, 025 COVID-19 Vaccine ( season) 2025 02/03/2021, 01/13/2021 Influenza Vaccine (#1) 2025 , 07/17/2019, 05/05/2018, Additional history exists Alcohol/Substance Use Screening 03/26/2026 03/26/2025 Disability Screening 03/26/2026 03/26/2025 SDOH Screening 03/26/2026 03/26/2025 Tobacco Screening 03/26/2026 03/26/2025 Zoster Vaccines (1 of 2) 02/06/2050 RSV Patients and Patients Aged 60 years or older (1 - 1-dose 75+ series) 02/06/2075 Hepatitis B Vaccines Completed 2000, 2000, 2000 HIB Vaccines Completed 02/12/2001, 07/21, 2000, Additional history exists IPV Vaccines Completed 02/13/2004, 0 09/2001, 2000, Additional history exists HPV Vaccines Completed 02/06/2015, 04/0 08/2014, 07/22/2014 Hepatitis A Vaccines Completed 08/04/2015, 07/22/19 15 Meningococcal Vaccine Completed 09/06/2016, 011 HIV Screening Completed 08/14/2019 Hepatitis C Screening Completed 08/14/2019 Meningococcal B Vaccine Aged Out No l onger eligible based on patient's age to complete this topic RSV under 20 months Aged Out No longe r eligible based on patient's age to complete this topic Rotavirus Vaccines Aged Out No longer eligible based on patient's age to complete this topic Procedures Procedure Name Priority Date/Time Associated Diagnosis Comments ZZZ HISTORICAL HEPATITIS C ANTIBODY RFLX Routine 08/14/2019 9:22 AM EST ZZZ HISTORICAL HIV AB/AG Routine 08/14/2019 9:22 AM EST from Last 3 Months or Most Recently Relevant to Health Maintenance Results * HEPATITIS C ANTIBODY RFLX (08/14/2019 9:22 AM EST) Pathologist [facility] HEPATITIS C ANTIBODY NONREACTIVE NONREACTIVE [facility] Comment: Antibodies to HCV not detected; does not exclude early acute HCV infection. 08/14/2019 9:22 AM EST Historical Provider HISTORICAL/NON ORDERABLE LABS Final Result [facility] [address] * HIV AB/AG (08/14/2019 9:22 AM EST) HIV AG/AB NON[facility]ACTIVE [facility] Comment: HIV-1 p24 Ag and/or HIV-1/HIV-2 Ab not detected. A test result that is nonreactive does not exclude the possibility of exposure to or infection with HIV-1 and/or HIV-2. Nonreactive results in this assay for individuals with prior exposure to HIV-1 and/or HIV-2 may be due to antigen and antibody levels that are below the limit of detection of this assay. [facility] Specialist HIV Ag/Ab Combo assay result and supplemental assay results should be interpreted in conjunction with the patient's clinical presentation, history and other laboratory results. If the results are inconsistent with clinical evidence, additional testing is suggested to confirm the result. 08/14/2019 9:22 AM EST us Historical Provider HISTORICAL/NON ORDERABLE LABS Final Result [facility] [address] from Last 3 Months or Most Recently Relevant to Health Maintenance Insurance [employer] Care Teams Card Lacer Relationship Specialty Start Date End Date Kasey Dsouza ANP [address] [place] [id number] PCP - General Family Medicine 05/19/20
--- OUTSIDE RECORDS SUMMARY | 2025-05-03 00:11 | XMS_ITS | Encounter Summary ---
Author Organization [facility] Address [address] [place] [address] Phone Care Team Providers Care Spin Instructor Name Role Phone Tanisha Cho MD Primary Care Provider [phone] Encounter Details Date Type Department Care Team (Late st Contact Info) Description 02/02/2017 Conversion Encounter [facility] [address] [place] [address] Social History Tobacco Use Types Packs/Day Years Used Date Smoking Tobacco: Never Comments:Never smoker Sex and Gender Information Value Date Recorded Sex Assigned at Not on file Legal Sex Male 5:23 PM EDT Gender Identity Not on file Sexual Orientation Not on file documented as of this encounter Plan of Treatment Not on file documented as of this encounter Visit Diagnoses Not on filedocumented in this encounter Care Teams Spin Instructor Relationship Specialty Start Date End Date Tanisha Cho MD [address] [place] [address] PCP - General 01/27/17 09/27/22 documented as of this encounter
--- OUTSIDE RECORDS SUMMARY | 2025-05-03 00:11 | XMS_ITS | Encounter Summary ---
Author Organization [facility] Address [address] [place] [address] Phone Care Team Providers Care Security Flex Utility Officer Name Role Phone Tanisha Cho MD Primary Care Provider Encounter Details Date Type Department Care Team (Late st Contact Info) Description 09/26/2016 Documentation [facility] [address] [place], [place] [phone] Family Medicine, Physician [address], [place] [phone] Social History Tobacco Use Types Packs/Day Years [...] on filedocumented in this encounter Care Teams Security Flex Utility Officer Relationship Specialty Start Date End Date Tanisha Cho MD [address] [place] [address] PCP - General 01/27/17 09/27/22 documented as of this encounter
--- OUTSIDE RECORDS SUMMARY | 2025-05-03 00:12 | XMS_ITS | Encounter Summary ---
Author Organization [employer] Address [address] [place] [address] [address] [place] [address] Care Team Providers Care Vessel Builder Name Role Phone Kasey Dsouza Primary Care Provider [phone] Reason for Visit * Reason Onset Date Comments Letter for School/Work 12/14/2022 Encounter Details Date Type Department Care Team ([facility] st Contact Info) Description 12/14/2022 Telephone [facility] [address] [place] [address] Kasey Dsouza ANP [address] [place] [address] Letter for School/Work Social History Tobacco Use Types Packs/Day Years Used Date Smoking Tobacco: Never Smokeless Tobacco: Current Alcohol Use Standard Drinks/Week Comments Not Currently 0 (1 standard drink = 0.6 oz pur e alcohol) Depression Answer Date Recorded Patient Health Questionnaire-9 Score 24 09/16/2022 Depression Answer Date Recorded Patient Health Questionnaire-2 Score 6 09/16/2022 Sex and Gender Information Value Date Recorded Sex Assigned at Male 04/18/2022 10:36 AM EDT Legal Sex Male 10:36 AM EDT Gender Identity Male 04/18/2022 10:36 AM EDT Sexual Orientation Straight 04/18/2022 10 :36 AM EDT documented as of this encounter Miscellaneous Notes * Telephone Encounter - Corrina Lowe - 12/14/2022 2:29 PM EDT Tc from elsa requesting a new letter stating he is fit to work . Any questions, please contact elsa at [phone] documented in this encounter Plan of Treatment Upcoming Encounters Date Type Department Care Team (Late st Contact Info) Description 05/21/2025 3:45 PM EST Office Visit [facility] [address] [place] [address] Kasey Dsouza ANP [address] [place] [address] documented as of this encounter Visit Diagnoses Not on filedocumented in this encounter Additional Health Concerns Assessment Noted Time PHQ-9 Depression Total Score: 24 023 12:59 PM EDT documented as of this encounter Care Teams Vessel Builder Relationship Specialty Start Date End Date Kasey Dsouza ANP [address] [place] [address] PCP - General Family Medicine 05/19/20 documented as of this encounter
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
--- OUTSIDE RECORDS SUMMARY | 2025-05-03 00:14 | XMS_ITS | Encounter Summary ---
Author Organization [facility] Address [address] [place] [address] Phone Care Team Providers Care Heating Plant Superintendent Name Role Phone Tanisha Cho MD Primary Care Provider Encounter Details Date Type Department Care Team (Late st Contact Info) Description 11/20/2009 Documentation [facility] Family Medicine [address] [place], [place] [phone] Family Medicine, Physician [address], [place] [phone] Social History Tobacco Use Types Packs/Day Years Used Date Smoking Tobacco: Never Assessed Sex and Gender Information Value Date Recorded Sex Assigned at Not on file Legal Sex Male 5:23 PM EDT Gender Identity Not on file Sexual Orientation Not on file documented as of this encounter Plan of Treatment Not on file documented as of this encounter Visit Diagnoses Not on filedocumented in this encounter Care Teams Heating Plant Superintendent Relationship Specialty Start Date End Date Tanisha Cho MD [address] [place] [address] PCP - General 01/27/17 09/27/22 documented as of this encounter
--- OUTSIDE RECORDS SUMMARY | 2025-05-03 00:14 | XMS_ITS | Clinical Summary ---
Author Organization [facility] Address [address] [place] [phone] Care Team Providers Care Lactation Specialist Name Role Phone Unavailable Primary Care Provider Unavailabl e Social History Tobacco Use Types Packs/Day Years Used Date Smoking Tobacco: Never Assessed Sex and Gender Information Value Date Recorded Sex Assigned at Not on file Legal Sex Male 1:36 PM EDT Gender Identity Not on file Sexual Orientation Not on file Plan of Treatment Health Maintenance Due Date Last Done Comments HPV Vaccines (1 - Male 3-dos e series) 02/06/2015 DTaP,Tdap,and Td Vaccines (1 - Tdap) 02/06/2019 Hepatitis B Vaccines (1 of 3 - 19+ 3-dose series) 02/06/2019 HIV Screening 01/19/2024 Hepatitis C Screening 01/19/2024 Social Influencers of Health Screening 01/19/2024 Depression Screening 06/19/2024 COVID-19 Vaccine (1 - 2024-2 6 season) 2025 Influenza Vaccine (#1) 2025 RSV Immunization Adult Patie nts (1 - 1-dose 75+ series) 02/06/2075 HIB Vaccines Aged Out No longer eligi ble based on patient's age to complete this topic Hepatitis A Vaccines Aged Out No long er eligible based on patient's age to complete this topic IPV Vaccines Aged Out No longer eligi ble based on patient's age to complete this topic MMR Vaccines Aged Out No longer eligi ble based on patient's age to complete this topic Meningococcal ACWY Vaccine Aged Out N o longer eligible based on patient's age to complete this topic Meningococcal B Vaccine Aged Out No l onger eligible based on patient's age to complete this topic Pneumococcal Vaccine: Pediat rics (0 to 5 Years) and At-Risk Patients (6 to 49 Years) Aged Out No longer eligible b ased on patient's age to complete this topic RSV Immunization Patients Un ziggy 20 months Aged Out No longer eligible b ased on patient's age to complete this topic Varicella Vaccines Aged Out No longer eligible based on patient's age to complete this topic
--- OUTSIDE RECORDS SUMMARY | 2025-05-03 00:15 | XMS_ITS | Encounter Summary ---
Author Organization [facility] Address [address] [place] [address] Phone Care Team Providers Care Merchandise Displayer Name Role Phone Tanisha Cho MD Primary Care Provider Encounter Details Date Type Department Care Team (Late st Contact Info) Description 11/20/2014 Documentation [facility] [place] Family Medicine [address] [place], [place] [phone] Family Medicine, Physician [address], [place] [phone] Social History Tobacco Use Types Packs/Day Years [...] on filedocumented in this encounter Care Teams Merchandise Displayer Relationship Specialty Start Date End Date Tanisha Cho MD [address] [place] [address] PCP - General 01/27/17 09/27/22 documented as of this encounter
--- OUTSIDE RECORDS SUMMARY | 2025-05-03 00:15 | XMS_ITS | Encounter Summary ---
Author Organization [facility] Address [address] [place] [address] Phone Care Team Providers Care Dry Lumber Grader Name Role Phone Tanisha Cho MD Primary Care Provider [phone] Encounter Details Date Type Department Care Team (Late st Contact Info) Description 09/22/2009 Documentation [facility] [place] Family Medicine [address] [place], [place] [phone] Family Medicine, Physician [address], [place] [phone] Social History Tobacco Use Types Packs/Day Years [...] on filedocumented in this encounter Care Teams Dry Lumber Grader Relationship Specialty Start Date End Date Tanisha Cho MD [address] [place] [address] PCP - General 01/27/17 09/27/22 documented as of this encounter
== END 2025-05-02 16:01 | disposition home or self-care (01) ==
LOC: HO.HSM 15:22
PROVIDERS: PCP Nurse Practitioner Primary Care; Visit Provider Nurse Practitioner
DX: G40.B09 Juvenile myoclonic epilepsy, not intractable, without status epilepticus (principal)
CPT/HCPCS: 99214